=== PATIENT | male | born 1955 | race Caucasian/White ===

== ENCOUNTER 2018-05-27 09:56 | Inpatient (IN) ==
[2018-05-29 11:18] VITALS: BP 137/70
== END 2018-05-29 14:49 | disposition home or self-care (01) | DRG 310 ==
LOC: N.ED 09:56 → N.EDINP 13:18 → N.TELEN 13:54
PROVIDERS: ADMIT Internal Medicine Cardiovascular Disease; ATTEND Internal Medicine Cardiovascular Disease

== ENCOUNTER 2020-03-12 09:15 | Inpatient (IN) ==
[2020-03-12 10:08] LABS: Basophils % 0.7 % (0.0-0.8); Eosinophils # 0.1 10*3/uL (0.0-0.87); Eosinophils % 1.9 % (0.00-10.9); Hematocrit 38.5 VOL% (42.0-52.0); Immature Granulocytes % 0.3 %; Immature Granulocytes Absolute 0.02 #; Lymphocytes # 1.8 10*3/uL (1.4-4.0); Mean Corpuscular HGB Conc 33.8 GM/DL (32-36); Mean Corpuscular Volume 88.7 FL (87-102); Mean Platelet Volume 10.3 FL (9.6-12.0); Monocytes % 7.4 % (1.7-12.7); Neutrophils % 59.7 % (38.7-73.9); Platelet Count 148 T/CUMM (130-400); Red Blood Count 4.34 MC/CUMM (3.8-5.5); White Blood Count 5.8 T/CUMM (4-12)
[2020-03-12 10:20] LABS: PT Patient Result 11.1 SECS (9.8-11.9); Partial Thromboplastin Time 28.2 SECS (23.9-33.8)
[2020-03-12 10:53] LABS: Alanine Aminotransferase 37 U/L (16-61); Albumin 3.3 G/DL (3.4-5.0); Alkaline Phosphatase 56 U/L (45-117); Aspartate Amino Transferase 26 U/L (0-37); Bilirubin,Total < 0.39 MG/DL (0.2-1.0); Blood Urea Nitrogen 21 MG/DL (7-18); Calcium 8.2 MG/DL (8.5-10.1); Estimated Glom Filtration Rate 89 ML/MIN; Glucose 106 MG/DL (74-106); Osmolality,Calculated 281.4 MOS/KG (273-304); Total Protein 6.5 G/DL (6.4-8.3); Troponin I < 0.015 NG/ML (0.00-0.045)
[2020-03-12] MEDS ORDERED: APIXABAN 5 MG TABLET PO ONE (12:31)
[2020-03-12] MEDS ORDERED: dilTIAZem Drip 125 MG/125 ML PREMIX IV ONE (12:35)
[2020-03-12] MEDS ORDERED: SOTALOL 80 MG TABLET PO STA (12:49)
[2020-03-12] MEDS ORDERED: POTASSIUM BICARB EFFERVESCENT 25 MEQ TABLET PO ONE (12:54)
[2020-03-12] MEDS: POTASSIUM BICARB EFFERVESCENT 25 MEQ TABLET PO SCH ×2 (12:59→20:33)
[2020-03-12] MEDS ORDERED: dilTIAZem Drip 125 MG/125 ML PREMIX IV SCH (13:00)
[2020-03-12] MEDS ORDERED: MAGNESIUM SULF RIDER 2 GM in PREMIX 1 EACH IV PRN (15:02)
[2020-03-12] MEDS ORDERED: MAGNESIUM SULF RIDER 4 GM in PREMIX 1 EACH IV PRN (15:02)
[2020-03-12] MEDS: APIXABAN 5 MG TABLET PO SCH (20:33)
[2020-03-12] MEDS: SOTALOL 80 MG TABLET PO SCH (20:33)
[2020-03-12] MEDS: ROSUVASTATIN 10 MG TABLET PO SCH (20:33)
[2020-03-13 06:03] LABS: Alanine Aminotransferase 42 U/L (16-61); Albumin 3.2 G/DL (3.4-5.0); Alkaline Phosphatase 56 U/L (45-117); Aspartate Amino Transferase 27 U/L (0-37); Blood Urea Nitrogen 16 MG/DL (7-18); Calcium 8.5 MG/DL (8.5-10.1); Estimated Glom Filtration Rate 102 ML/MIN; Glucose 95 MG/DL (74-106); Osmolality,Calculated 281.3 MOS/KG (273-304); Total Protein 5.8 G/DL (6.4-8.3); Troponin I 0.016 NG/ML (0.00-0.045)
[2020-03-13] MEDS: SOTALOL 80 MG TABLET PO SCH ×2 (08:15→21:51)
[2020-03-13] MEDS: APIXABAN 5 MG TABLET PO SCH ×2 (08:15→21:50)
[2020-03-13] MEDS ORDERED: ASPIRIN CHEW 81 MG TABLET PO SCH (09:00)
[2020-03-13] MEDS ORDERED: SOTALOL 80 MG TABLET PO ONE (10:13)
[2020-03-13] MEDS: dilTIAZem Drip 125 MG/125 ML PREMIX IV SCH ×2 (14:47→17:29)
[2020-03-13] MEDS: ROSUVASTATIN 10 MG TABLET PO SCH (21:51)
[2020-03-14 08:15] VITALS: BP 128/81
[2020-03-14] MEDS: APIXABAN 5 MG TABLET PO SCH (09:00)
[2020-03-14] MEDS ORDERED: ASCORBIC ACID 500 MG TABLET PO SCH (09:00)
[2020-03-14] MEDS: SOTALOL 80 MG TABLET PO SCH (09:01)
== END 2020-03-14 11:28 | disposition home or self-care (01) | DRG 310 ==
LOC: N.ED 09:15 → N.EDINP 09:15 → N.ICU 14:40 → N.TELEN 03-13 15:18
PROVIDERS: ADMIT Internal Medicine Cardiovascular Disease; ATTEND Internal Medicine Cardiovascular Disease